=== PATIENT | female | born 1995 | race American Indian/Alaskan Native ===

== ENCOUNTER 2020-06-21 20:57 | Emergency (ER) | payer MEDICAID | END 2020-06-22 07:00 | disposition left against medical advice (07) | LOC: ED 20:57 | DX: R06.02 Shortness of breath (principal); Z53.21 Procedure and treatment not carried out due to patient leaving prior to being seen by health care provider ==

== ENCOUNTER 2021-04-09 14:21 | Outpatient (CLI) | payer MEDICAID ==
[2021-04-09] MEDS ORDERED: LACTATED RINGERS 1,000 ML ONE (17:23)
--- NOTE | 2021-04-09 17:36 | Ultrasound Report ---
ULTRASOUND OBSTETRIC LIMITED INDICATION / CLINICAL INFORMATION: RULE OUT PLACENTA ABRUPTION. Clinical Gestational Age (GA) in weeks, days: 26 weeks 6 days TECHNIQUE: Transabdominal. COMPARISON: None available. FINDINGS: HEART RATE (beats per minute): 134 AMNIOTIC FLUID INDEX (cm) = not measured but subjectively within normal limits. (normal = 7-24 cm) PRESENTATION: Transverse. ADDITIONAL FINDINGS: The placenta is anteriorly positioned. There is no evidence of abruption identif ied. IMPRESSION: 1. No evidence for placental abruption at this time. 2. Single viable IUP in a transverse presentation. Signer Name: Nakita Isbell MD Signed: 04/09/2021 5:31 PM Workstation Name: [id number]
[2021-04-09 17:44] VITALS: BP 113/67
[2021-04-09] MEDS ORDERED: LACTATED RINGERS 1,000 ML IV ONE (18:00)
[2021-04-09] MEDS ORDERED: TERBUTALINE 1 MG/1 ML INJ SUB-Q ONE (18:00)
== END 2021-04-09 19:35 | disposition home or self-care (01) ==
LOC: TRG 14:21 → APU 14:23 → TRG 19:35
PROVIDERS: ATTEND Obstetrics & Gynecology
DX: Z34.93 Encounter for supervision of normal pregnancy, unspecified, third trimester (principal); Z3A.26 26 weeks gestation of pregnancy
CPT/HCPCS: 76815; J3105; J7120